=== PATIENT | female | born 2000 | race Caucasian/White ===

== ENCOUNTER 2022-11-22 07:10 | Day surgery (SDC) | payer BC ==
[~2022-11-22 07:10] MED LIST: Lactated Ringers 1,000 ML IV SCH; Sodium Chloride 0.9% 10 ML Syringe FLUSH PRN; ceFAZolin 2 GM Vial IVPUSH ONE; ceFAZolin 2 GM in Sodium Chloride 0.9% 100 ML IV ONE
[2022-11-22] MEDS ORDERED: Ondansetron 4 MG/2 ML SDV IVPUSH ONE (07:11)
[2022-11-22] MEDS ORDERED: HYDROmorphone 2 MG/ML SDV IV ONE (07:11)
[2022-11-22] MEDS ORDERED: Neostigmine Methylsulfate 10 MG/10 ML MDV IVPUSH ONE (07:11)
[2022-11-22] MEDS ORDERED: diphenhydrAMINE 50 MG/ML SDV IVPUSH ONE (07:11)
[2022-11-22] MEDS ORDERED: fentaNYL 100 MCG/2 ML SDV IV ONE (07:11)
[2022-11-22] MEDS ORDERED: Ketorolac 30 MG/ML SDV IVPUSH ONE (07:11)
[2022-11-22] MEDS ORDERED: Midazolam 1 MG/ML 2 ML SDV IV ONE (07:11)
[2022-11-22] MEDS ORDERED: Propofol 200 MG/20 ML SDV IV ONE (07:11)
[2022-11-22] MEDS ORDERED: Lactated Ringers 1,000 ML IV ONE (07:11)
[2022-11-22] MEDS ORDERED: Dexamethasone 4 MG/ML 5 ML MDV IVPUSH ONE (07:11)
[2022-11-22] MEDS ORDERED: Rocuronium 100 MG/10 ML MDV IV ONE (07:11)
[2022-11-22] MEDS ORDERED: Glycopyrrolate 0.2 MG/ML 5 ML MDV IV ONE (07:11)
[2022-11-22] MEDS ORDERED: Succinylcholine 200 MG/10 ML MDV IV ONE (07:11)
[2022-11-22] MEDS ORDERED: Acetaminophen/HYDROcodone 325-5 MG Tab PO ONE (10:45)
== END 2022-11-22 12:52 | disposition home or self-care (01) ==
LOC: FB.SDS 07:10
PROVIDERS: ATTEND Surgery
DX: K80.10 Calculus of gallbladder with chronic cholecystitis without obstruction (principal); J45.909 Unspecified asthma, uncomplicated; E66.9 Obesity, unspecified; Z79.4 Long term (current) use of insulin; Z79.899 Other long term (current) drug therapy; Z68.41 Body mass index [BMI] 40.0-44.9, adult
CPT/HCPCS: 00790; 81025; 88304; A9270-GY; J0330; J1100; J1170; J1200; J1885; J2250; J2405; J2704; J2710; J3010; J3490; J7120